=== PATIENT | female | born 1995 | race Caucasian/White ===

== ENCOUNTER 2019-10-23 05:24 | Inpatient (IN) | payer MEDICAID ==
[~2019-10-23 05:24] MED LIST: Sodium Chloride 0.9% 10 ML Syringe FLUSH PRN
[2019-10-23] MEDS: Lactated Ringers 1,000 ML IV SCH ×2 (05:47→06:14)
[2019-10-23] MEDS ORDERED: ceFAZolin 2 GM in Premix Bag 1 BAG IV ONE (06:00)
[2019-10-23] MEDS ORDERED: Oxytocin/Lactated Ringers 10 UNIT/1,000 ML BAG IV SCH (06:00)
[2019-10-23] MEDS ORDERED: Citric Acid/Sodium Citrate Solution 30 ML Cup PO ONE (06:00)
[2019-10-23] MEDS ORDERED: Metoclopramide 10 MG/2 ML SDV IVPUSH ONE (06:00)
[2019-10-23] MEDS ORDERED: Bupivacaine 0.5% 30 ML SDV ONE (06:58)
[2019-10-23] MEDS ORDERED: Ondansetron 4 MG/2 ML SDV ONE (07:12)
[2019-10-23] MEDS ORDERED: Ketorolac 30 MG/ML SDV ONE (07:12)
[2019-10-23] MEDS ORDERED: Oxytocin 10 Units/1 ML SDV ONE (07:12)
[2019-10-23] MEDS ORDERED: Lactated Ringers 2,000 ML ONE (07:12)
[2019-10-23] MEDS ORDERED: ceFAZolin 1 GM Vial ONE (07:12)
[2019-10-23] MEDS ORDERED: Morphine PF 1 MG/ML Amp ONE (07:13)
[2019-10-23] MEDS ORDERED: Ondansetron 4 MG/2 ML SDV IVPUSH PRN (07:17)
[2019-10-23] MEDS ORDERED: diphenhydrAMINE 50 MG/ML SDV IVPUSH PRN ×2 (07:17→09:20)
[2019-10-23] MEDS ORDERED: fentaNYL 100 MCG/2 ML SDV IVPUSH PRN (07:17)
[2019-10-23] MEDS ORDERED: Methylergonovine 0.2 MG/1 ML Amp ONE (08:14)
[2019-10-23] MEDS ORDERED: ePHEDrine Sulfate/0.9% NaCl/Pf 25 MG/5 ML SYRINGE IV ONE (08:33)
[2019-10-23] MEDS ORDERED: Ketorolac 15 MG/ML SDV ONE (08:43)
--- NOTE | 2019-10-23 08:48 | PCM.OPNOTE ---
- General Post-Op/Procedure Note Date of Surgery/Procedure: 10/23/19 Operative Procedure(s): repeat section Findings: viable male, weight 7#5oz, breech Pre Op Diagnosis: prior , desires repeat Post-Op Diagnosis: Same Anesthesia Technique: Spinal Primary Surgeon: Dayanara Montenegro Anesthesia Provider: Sona Kaiser Cutter V Groove: Tonja Solomon Fluid Replacement, Intraop: 2,000 Output, Urine Amount: 600 EBL in mLs: 125 Complications: None Condition: Good Free Text/Narrative:: The patient was taken to the operating room where epidural anesthesia was dosed to surgical levels without difficulty. The patient was prepped and draped in the usual sterile fashion in the dorsal supine position with a leftward tilt. A Pfannenstiel skin incision was made with the scalpel and carried through to the underlying layer of fascia. The fascia was incised in the midline and extended laterally using Alcala scissors. Paras clamps were used to elevate the superior aspect of the fascial incision, which was elevated, and the underlying rectus muscles were dissected off bluntly and using Alcala scissors. Attention was then turned to the inferior aspect of the fascial incision, which in similar fashion was grasped with Paras clamps, elevated, and the underlying rectus muscles were dissected off bluntly and using the alcala. The rectus muscles were dissected in the midline. The peritoneum was entered bluntly; this incision was extended superiorly and inferiorly with good visualization of the bladder. The bladder blade was inserted. The vesicouterine peritoneum was identified and entered sharply using Metzenbaum scissors. This incision was extended laterally and the bladder flap was created digitally. The bladder blade was reinserted. The lower uterine segment was incised in a transverse fashion using the scalpel and with digital traction. Clear fluid was noted. The was subsequently delivered with normal breech maneuvers. The cord was clamped and cut. The infant was subsequently handed to the awaiting shop foreman whose presence had been requested.. The placenta was delivered spontaneously intact with a three-vessel cord noted. The uterus was exteriorized and cleared of all clots and debris. The uterine incision was repaired in 2 layers using 0 monocryl. Hemostasis was visualized. Hemostasis was visualized bilaterally. The uterus was returned to the abdomen. The uterine incision was reexamined and it was noted to be hemostatic. The pelvis was copiously irrigated. The fascia was closed with 1 PDS suture, and the skin was closed with 3-0 monocryl. Sponge, lap, and instrument counts were correct x2. The patient was stable at the completion of the procedure and was subsequently transferred to the recovery room in stable condition.
--- NOTE | 2019-10-23 08:54 | PCM.POSTAN ---
POST ANESTHESIA ASSESSMENT - MENTAL STATUS Mental Status: Alert, Oriented - VITAL SIGNS Vital Signs: Last Vital Signs Temp 37.0 C 10/23/19 05:00 Pulse 91 10/23/19 05:00 Resp 16 10/23/19 05:00 BP 133/81 10/23/19 05:00 Pulse Ox 98 10/23/19 05:00 0837 121/68 46 17 97% 97.4F - RESPIRATORY Respiratory Status: Respiratory Rate WNL, Airway Patent, O2 Saturation Stable - CARDIOVASCULAR CV Status: Pulse Rate WNL, Blood Pressure Stable - GASTROINTESTINAL GI Status: No Symptoms - PAIN Pain Score: 0 - POST OP HYDRATION Hydration Status: Adequate & Stable
--- NOTE | 2019-10-23 09:03 | PCM.PREANE ---
Preanesthetic Assessment - Procedure Proposed Procedure: Repeat C Section - Anesthesia/Transfusion/Family Hx Anesthesia History: Prior Anesthesia Without Reaction Family History of Anesthesia Reaction: No Transfusion History: No Prior Transfusion(s) - Review of Systems General: No Symptoms Pulmonary: No Symptoms Cardiovascular: No Symptoms Gastrointestinal: No Symptoms Neurological: No Symptoms Other: Reports: None - Physical Assessment NPO Status Date: 10/22/19 NPO Status Time: 22:00 Vital Signs: Last Vital Signs Temp 36.1 C 10/23/19 08:50 Pulse 86 10/23/19 08:50 Resp 17 10/23/19 08:55 BP 127/73 10/23/19 08:50 Pulse Ox 96 10/23/19 08:50 Height: 1.57 m Weight: 62.777 kg ASA Class: 2 Mental Status: Alert & Oriented x3 Airway Class: Mallampati = 1 Dentition: Reports: Normal Dentition Thyro-Mental Finger Breadths: 3 Mouth Opening Finger Breadths: 3 ROM/Head Extension: Full Lungs: Clear to Auscultation, Normal Respiratory Effort Cardiovascular: Regular Rate, Regular Rhythm - Lab Values: Laboratory Last Values WBC 8.01 K/mm3 (3.98-10.04) 10/23/19 05:37 RBC 3.99 M/mm3 (3.98-5.22) 10/23/19 05:37 Hgb 11.8 gm/dl (11.2-15.7) 10/23/19 05:37 Hct 36.7 % (34.1-44.9) 10/23/19 05:37 MCV 92.0 fl (79.4-94.8) 10/23/19 05:37 MCH 29.6 pg (25.6-32.2) 10/23/19 05:37 MCHC 32.2 g/dl (32.2-35.5) 10/23/19 05:37 RDW Std Deviation 47.5 fL (36.4-46.3) H 10/23/19 05:37 Plt Count 241 K/mm3 (182-369) 10/23/19 05:37 MPV 11.6 fl (9.4-12.3) 10/23/19 05:37 Neut % (Auto) 64.4 % (34.0-71.1) 10/23/19 05:37 Lymph % (Auto) 22.1 % (19.3-51.7) 10/23/19 05:37 [place] % (Auto) 11.5 % (4.7-12.5) 10/23/19 05:37 Eos % (Auto) 1.2 (0.7-5.8) 10/23/19 05:37 Baso % (Auto) 0.2 % (0.1-1.2) 10/23/19 05:37 Neut # (Auto) 5.15 K/mm3 (1.56-6.13) 10/23/19 05:37 Lymph # (Auto) 1.77 K/mm3 (1.18-3.74) 10/23/19 05:37 [place] # (Auto) 0.92 K/mm3 (0.24-0.36) H 10/23/19 05:37 Eos # (Auto) 0.10 K/mm3 (0.04-0.36) 10/23/19 05:37 Baso # (Auto) 0.02 K/mm3 (0.01-0.08) 10/23/19 05:37 Blood Type A POSITIVE 10/23/19 05:37 - Allergies Allergies/Adverse Reactions: Allergies Allergy/AdvReac Type Severity Reaction Status Date / Time No Known Allergies Allergy Verified 10/22/19 12:08 - Acknowledgements Anesthesia Type Planned: Spinal Pt an Appropriate Candidate for the Planned Anesthesia: Yes Alternatives and Risks of Anesthesia Discussed w Pt/Guardian: Yes Pt/Guardian Understands and Agrees with Anesthesia Plan: Yes PreAnesthesia Questionnaire - Past Health History Medical/Surgical History: Denies Medical/Surgical History Respiratory History: Reports: Asthma 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: , Spontaneous - SUBSTANCE USE Smoking Status *Q: Never Smoker Second Hand Smoke Exposure: No Recreational Drug Use History: No - HOME MEDS Home Medications: Home Meds Fluticasone Propion/Salmeterol [Advair 250-50 Diskus] 2 puff INH DAILY 10/22/19 [History] Pnv No.95/Ferrous Fum/Folic AC [ Tablet] 1 tab PO DAILY 10/22/19 [ History] - CURRENT (IN HOUSE) MEDS Current Meds: Current Medications Diphenhydramine HCl (Benadryl) 25 mg IVPUSH Q6H PRN PRN Reason: Pruritis Fentanyl (Sublimaze) 50 mcg IVPUSH Q5M PRN PRN Reason: Pain Lactated Ringer's (Ringers, Lactated) 1,000 mls @ 125 mls/hr IV ASDIRECTED [facility] Last Admin: 10/23/19 06:14 Dose: 125 mls/hr Oxytocin/Lactated Ringer's (Pitocin In Lr 10 Units/1,000 Ml) 10 unit in 1,000 mls @ 100 mls/hr IV ASDIRECTED [facility]; Protocol Ondansetron HCl (Zofran) 4 mg IVPUSH ONETIME PRN PRN Reason: Nausea/Vomiting Sodium Chloride (Saline Flush) 10 ml FLUSH ASDIRECTED PRN PRN Reason: Keep Vein Open Discontinued Medications Bupivacaine HCl (Marcaine 0.5%) Confirm Administered Dose 30 ml .ROUTE .STK-MED ONE Stop: 10/23/19 06:59 Cefazolin Sodium (Ancef) Confirm Administered Dose 2 gm .ROUTE .STK-MED ONE Stop: 10/23/19 07:13 Citric Acid/Sodium Citrate (Bicitra Solution) 30 ml PO ONETIME ONE Stop: 10/23/19 06:01 Last Admin: 10/23/19 07:05 Dose: 30 ml Ephedrine Sulfate (Ephedrine 25 Mg/5 Ml Syringe) Confirm Administered Dose 25 mg IV .STK-MED ONE Stop: 10/23/19 08:34 Cefazolin Sodium/Dextrose 2 gm (/ Premix) 50 mls @ 100 mls/hr IV ONETIME ONE Stop: 10/23/19 06:29 Lactated Ringer's (Ringers, Lactated) Confirm Administered Dose 2,000 mls @ as directed .ROUTE .STK-MED ONE Stop: 10/23/19 07:13 Ketorolac Tromethamine (Toradol) Confirm Administered Dose 30 mg .ROUTE .STK- MED ONE Stop: 10/23/19 07:13 Ketorolac Tromethamine (Toradol) Confirm Administered Dose 15 mg .ROUTE .STK- MED ONE Stop: 10/23/19 08:44 Methylergonovine Maleate (Methergine) Confirm Administered Dose 0.2 mg .ROUTE .STK-MED ONE Stop: 10/23/19 08:15 Metoclopramide HCl (Reglan) 10 mg IVPUSH ONETIME ONE Stop: 10/23/19 06:01 Last Admin: 10/23/19 07:05 Dose: 10 mg Miscellaneous Medication (Phenylephrine 1 Mg/10 Ml-Ns) Confirm Administered Dose 1 mg IV .STK-MED ONE Stop: 10/23/19 08:34 Morphine Sulfate (Duramorph Pf) Confirm Administered Dose 1 mg .ROUTE .STK-MED ONE Stop: 10/23/19 07:14 Ondansetron HCl (Zofran) Confirm Administered Dose 4 mg .ROUTE .STK-MED ONE Stop: 10/23/19 07:13 Oxytocin (Pitocin) Confirm Administered Dose 20 unit .ROUTE .STK-MED ONE Stop: 10/23/19 07:13
[2019-10-23] MEDS ORDERED: Acetaminophen/oxyCODONE 325-5 MG Tab PO PRN (09:20)
[2019-10-23] MEDS ORDERED: Naloxone 0.4 MG/ML SDV IVPUSH PRN (09:20)
[2019-10-23] MEDS ORDERED: Dextrose 5%-Lactated Ringers 1,000 ML IV SCH (09:20)
[2019-10-23] MEDS ORDERED: ePHEDrine 50 MG/ML SDV IVPUSH PRN (09:20)
[2019-10-23] MEDS ORDERED: Docusate Sodium 100 MG Cap PO PRN (09:20)
[2019-10-23] MEDS: Ketorolac 30 MG/ML SDV IVPUSH SCH ×2 (14:59→20:57)
[2019-10-24] MEDS: Ketorolac 30 MG/ML SDV IVPUSH SCH (04:05)
--- NOTE | 2019-10-24 07:55 | PCM48HPAN ---
Post Anesthesia Note - EVALUATION WITHIN 48HRS OF ANESTHETIC Vital Signs in Normal Range: Yes Patient Participated in Evaluation: Yes Respiratory Function Stable: Yes Airway Patent: Yes Cardiovascular Function Stable: Yes Hydration Status Stable: Yes Pain Control Satisfactory: Yes Nausea and Vomiting Control Satisfactory: Yes Mental Status Recovered: Yes Vital Signs: Last Vital Signs Temp 36.9 C 10/24/19 04:03 Pulse 107 H 10/24/19 04:03 Resp 14 10/24/19 07:00 BP 119/64 10/24/19 04:03 Pulse Ox 97 10/24/19 07:00 - COMMENTS/OBSERVATIONS Free Text/Narrative:: no anesthesia complications noted
[2019-10-24] MEDS: Ibuprofen 600 MG Tab PO PRN ×2 (13:18→20:37)
[2019-10-24] MEDS: Acetaminophen/oxyCODONE 325-5 MG Tab PO PRN (16:44)
[2019-10-25] MEDS: Acetaminophen/oxyCODONE 325-5 MG Tab PO PRN ×2 (03:23→09:06)
--- NOTE | 2019-10-25 06:58 | PCM.DCSUM1 ---
Discharge Summary - Hospital Course Brief History: Admitted for uncomplicated RCS. Diagnosis: Stroke: No - Discharge Data Discharge Date: 10/25/19 Discharge Disposition: Home, Self-Care 01 Condition: Good - Referral to Home Health Primary Care Physician: Dayanara Montenegro MD - Patient Summary/Data Operative Procedure(s) Performed: repeat section - Patient Instructions Diet: Usual Diet as Tolerated Activity: No Strenuous Activities Activity, Other: pelvic rest Driving: Do Not Drive Showering/Bathing: May Shower Notify Provider of: Fever, Increased Pain, Swelling and Redness, Drainage, Nausea and/or Vomiting - Discharge Plan *PRESCRIPTION DRUG MONITORING PROGRAM REVIEWED*: No *COPY OF PRESCRIPTION DRUG MONITORING REPORT IN PATIENT ANUM: No Home Medications: Home Meds Fluticasone Propion/Salmeterol [Advair 250-50 Diskus] 2 puff INH DAILY 10/22/19 [History] Pnv No.95/Ferrous Fum/Folic AC [ Tablet] 1 tab PO DAILY 10/22/19 [ History] Referrals: Dayanara Montenegro MD [Primary Care Provider] - (2-3 weeks) - Discharge Summary/Plan Comment DC Time >30 min.: No - General Info Date of Service: 10/25/19 Functional Status: Reports: Pain Controlled - Review of Systems General: Reports: No Symptoms HEENT: Reports: No Symptoms Pulmonary: Reports: No Symptoms Cardiovascular: Reports: No Symptoms Gastrointestinal: Reports: No Symptoms Genitourinary: Reports: No Symptoms Musculoskeletal: Reports: No Symptoms Skin: Reports: No Symptoms Neurological: Reports: No Symptoms Psychiatric: Reports: No Symptoms - Patient Data Vitals - Most Recent: Last Vital Signs Temp 36.8 C 10/25/19 03:20 Pulse 100 10/25/19 03:20 Resp 14 10/25/19 03:20 BP 108/59 L 10/25/19 03:20 Pulse Ox 100 10/25/19 03:20 Weight - Most Recent: 62.777 kg I&O - Last 24 hours: Intake & Output 10/24/19 10/24/19 10/25/19 14:59 22:59 06:59 Intake Total 360 880 Output Total 1250 650 Balance -890 230 Lab Results - Last 24 hrs: Laboratory Results - last 24 hr 10/24/19 Range/Units 05:32 Manual Slide Review Not Reportable Med Orders - Current: Current Medications Diphenhydramine HCl (Benadryl) 25 mg IVPUSH Q6H PRN PRN Reason: Itching or Nausea Docusate Sodium (Colace) 100 mg PO Q12H PRN PRN Reason: Constipation Last Admin: 10/24/19 20:37 Dose: 100 mg Ephedrine Sulfate (Ephedrine Sulfate) 5 mg IVPUSH SEECOMMENT PRN PRN Reason: Other Ibuprofen (Motrin) 600 mg PO Q6H PRN PRN Reason: mild pain or fever Last Admin: 10/24/19 20:37 Dose: 600 mg Naloxone HCl (Narcan) 0.1 mg IVPUSH SEECOMMENT PRN PRN Reason: Respiratory Depression Oxycodone/Acetaminophen (Percocet 325-5 Mg) 1 tab PO Q4H PRN PRN Reason: Pain (moderate 4-6) Last Admin: 10/25/19 03:23 Dose: 1 tab Oxycodone/Acetaminophen (Percocet 325-5 Mg) 2 tab PO Q4H PRN PRN Reason: Pain (severe 7-10) Discontinued Medications Bupivacaine HCl (Marcaine 0.5%) Confirm Administered Dose 30 ml .ROUTE .STK-MED ONE Stop: 10/23/19 06:59 Last Admin: 10/23/19 08:01 Dose: 20 ml Cefazolin Sodium (Ancef) Confirm Administered Dose 2 gm .ROUTE .STK-MED ONE Stop: 10/23/19 07:13 Citric Acid/Sodium Citrate (Bicitra Solution) 30 ml PO ONETIME ONE Stop: 10/23/19 06:01 Last Admin: 10/23/19 07:05 Dose: 30 ml Diphenhydramine HCl (Benadryl) 25 mg IVPUSH Q6H PRN PRN Reason: Pruritis Ephedrine Sulfate (Ephedrine 25 Mg/5 Ml Syringe) Confirm Administered Dose 25 mg IV .STK-MED ONE Stop: 10/23/19 08:34 Fentanyl (Sublimaze) 50 mcg IVPUSH Q5M PRN PRN Reason: Pain Cefazolin Sodium/Dextrose 2 gm (/ Premix) 50 mls @ 100 mls/hr IV ONETIME ONE Stop: 10/23/19 06:29 Lactated Ringer's (Ringers, Lactated) 1,000 mls @ 125 mls/hr IV ASDIRECTED [facility] Last Admin: 10/23/19 06:14 Dose: 125 mls/hr Oxytocin/Lactated Ringer's (Pitocin In Lr 10 Units/1,000 Ml) 10 unit in 1,000 mls @ 100 mls/hr IV ASDIRECTED [facility]; Protocol Lactated Ringer's (Ringers, Lactated) Confirm Administered Dose 2,000 mls @ as directed .ROUTE .STK-MED ONE Stop: 10/23/19 07:13 Dextrose/Lactated Ringer's (Dextrose 5%-Lactated Ringers) 1,000 mls @ 125 mls/ hr IV ASDIRECTED [facility] Stop: 10/23/19 17:19 Last Admin: 10/23/19 11:40 Dose: 125 mls/hr Ketorolac Tromethamine (Toradol) Confirm Administered Dose 30 mg .ROUTE .STK- MED ONE Stop: 10/23/19 07:13 Ketorolac Tromethamine (Toradol) Confirm Administered Dose 15 mg .ROUTE .STK- MED ONE Stop: 10/23/19 08:44 Ketorolac Tromethamine (Toradol) 30 mg IVPUSH Q6H [facility] Stop: 10/24/19 03:01 Last Admin: 10/24/19 04:05 Dose: 30 mg Methylergonovine Maleate (Methergine) Confirm Administered Dose 0.2 mg .ROUTE .STK-MED ONE Stop: 10/23/19 08:15 Last Admin: 10/23/19 08:12 Dose: 0.2 mg Metoclopramide HCl (Reglan) 10 mg IVPUSH ONETIME ONE Stop: 10/23/19 06:01 Last Admin: 10/23/19 07:05 Dose: 10 mg Miscellaneous Medication (Phenylephrine 1 Mg/10 Ml-Ns) Confirm Administered Dose 1 mg IV .STK-MED ONE Stop: 10/23/19 08:34 Morphine Sulfate (Duramorph Pf) Confirm Administered Dose 1 mg .ROUTE .STK-MED ONE Stop: 10/23/19 07:14 Ondansetron HCl (Zofran) Confirm Administered Dose 4 mg .ROUTE .STK-MED ONE Stop: 10/23/19 07:13 Ondansetron HCl (Zofran) 4 mg IVPUSH ONETIME PRN PRN Reason: Nausea/Vomiting Oxytocin (Pitocin) Confirm Administered Dose 20 unit .ROUTE .Parso-MED ONE Stop: 10/23/19 07:13 Sodium Chloride (Saline Flush) 10 ml FLUSH ASDIRECTED PRN PRN Reason: Keep Vein Open - Exam General: Reports: Alert, Oriented HEENT: Reports: Pupils Equal, Pupils Reactive, EOMI, Mucous Membr. Moist/[place] Neck: Reports: Supple Lungs: Reports: Clear to Auscultation, Normal Respiratory Effort Cardiovascular: Reports: Regular Rate, Regular Rhythm GI/Abdominal Exam: Normal Bowel Sounds, Soft, Non-Tender, No Organomegaly, No Distention, No Abnormal Bruit (Female) Exam: Normal Speculum Exam Rectal (Female) Exam: Normal Exam, Normal Rectal Tone Back Exam: Reports: Normal Inspection, Full Range of Motion Extremities: Normal Inspection, Normal Range of Motion, Non-Tender, No Pedal Edema, Normal Capillary Refill Skin: Reports: Warm, Dry, Intact Wound/Incisions: Reports: Healing Well Neurological: Reports: No New Focal Deficit Psy/Mental Status: Reports: Alert, Normal Affect, Normal Mood
[2019-10-25 09:55] VITALS: BP 125/62; PULSE 83
== END 2019-10-25 14:20 | disposition home or self-care (01) | DRG 788 ==
LOC: JD.OB 05:24
PROVIDERS: ADMIT Obstetrics & Gynecology; ATTEND Obstetrics & Gynecology
PROC: 10D00Z1 Extraction of Products of Conception, Low, Open Approach (ICD-10-PCS; principal; 2019-10-23)
DX: O34.211 Maternal care for low transverse scar from previous cesarean delivery (principal); Z37.0 Single live birth; Z3A.37 37 weeks gestation of pregnancy; O99.52 Diseases of the respiratory system complicating childbirth; J45.909 Unspecified asthma, uncomplicated
CPT/HCPCS: 01961; 36415; 59025; 85025; 86592; 86850; 86900; 86901; 94762; A9270-GY; J0171; J0690; J1885; J2210; J2274; J2370; J2405; J2590; J2765; J3490; J7120; J7121